=== PATIENT | female | born 1995 | race Caucasian/White ===

== ENCOUNTER 2021-03-05 18:20 | Emergency (ER) | payer BC, MEDICAID ==
[~2021-03-05] VITALS: Ht 167.6 cm; Wt 46.0 kg
[2021-03-05 19:25] VITALS: BP 109/71
== END 2021-03-05 22:54 | disposition left against medical advice (07) ==
LOC: ER 18:20
DX: Z53.21 Procedure and treatment not carried out due to patient leaving prior to being seen by health care provider (principal)

== ENCOUNTER 2021-05-08 20:16 | Emergency (ER) | payer BC, MEDICAID ==
[~2021-05-08] VITALS: Ht 170.2 cm; Wt 53.0 kg
[2021-05-08] MEDS ORDERED: IBUPROFEN 600MG TABLET PO ONE (21:30)
[2021-05-08] MEDS ORDERED: HYDROCODONE/ACETAMINOPHEN 5/325MG TABLET PO ONE (21:30)
[2021-05-08] MEDS ORDERED: HYDR-4001 MT (23:22)
[2021-05-08] MEDS ORDERED: IBUP-2028 MT (23:22)
[2021-05-08 23:45] VITALS: BP 133/75
== END 2021-05-08 23:45 | disposition home or self-care (01) ==
LOC: ER 20:16
DX: S42.401A Unspecified fracture of lower end of right humerus, initial encounter for closed fracture (principal); Z90.49 Acquired absence of other specified parts of digestive tract; Z97.5 Presence of (intrauterine) contraceptive device; W01.0XXA Fall on same level from slipping, tripping and stumbling without subsequent striking against object, initial encounter; Y93.89 Activity, other specified; Y92.018 Other place in single-family (private) house as the place of occurrence of the external cause
CPT/HCPCS: 29105; 73030; 73060; 73080; 73090; 73110; 99284; A4565

== ENCOUNTER 2022-05-13 15:40 | Emergency (ER) | payer BC, MEDICAID ==
[~2022-05-13] VITALS: Ht 170.2 cm; Wt 42.2 kg
[~2022-05-13 15:40] MED LIST: HYDR-4001 MT; IBUP-2028 MT
[2022-05-13 21:15] VITALS: BP 117/74
[2022-05-13] MEDS ORDERED: IBUPROFEN 400MG TABLET PO ONE (21:15)
[2022-05-13] MEDS: LIDOCAINE 5% PATCH TOP SCH ×2 (21:15→23:16)
[2022-05-13] MEDS ORDERED: METH-653 MT (23:30)
[2022-05-13] MEDS ORDERED: LIDO700A30 TP (23:30)
[2022-05-13] MEDS ORDERED: IBUP-2028 MT (23:30)
== END 2022-05-13 23:38 | disposition home or self-care (01) ==
LOC: ER 15:40
DX: M54.50 Low back pain, unspecified (principal)
CPT/HCPCS: 99282; 99283